=== PATIENT | male | born 1940 | race Caucasian/White ===

== ENCOUNTER 2017-09-10 05:42 | Outpatient (CLI) | payer MEDICARE ==
[~2017-09-10] VITALS: Ht 177.8 cm; Wt 71.7 kg
[2017-09-10] MEDS ORDERED: NAPR500T8 PO (12:43)
[2017-09-10] MEDS ORDERED: CETI10TA17 PO (12:43)
== END 2017-09-10 13:30 ==
LOC: PREOP 05:42
PROVIDERS: ATTEND Surgery
DX: Z01.818 Encounter for other preprocedural examination (principal); Z12.11 Encounter for screening for malignant neoplasm of colon; R63.4 Abnormal weight loss

== ENCOUNTER 2017-09-12 09:23 | Day surgery (SDC) | payer MEDICARE, OTHER ==
[~2017-09-12] VITALS: Ht 177.8 cm; Wt 71.7 kg
[~2017-09-12 09:23] MED LIST: CETI10TA17 PO; NAPR500T8 PO
[2017-09-12] MEDS ORDERED: NS IV 500 ML 500 ML ONE (10:12)
[2017-09-12 10:13] VITALS: BP 124/67
[2017-09-12] MEDS ORDERED: NS IV 500 ML 500 ML IV SCH (10:15)
[2017-09-12] MEDS ORDERED: LIDOCAINE JELLY 2% (XYLOCAINE) 5 ML TUBE MM PRN (10:15)
[2017-09-12] MEDS ORDERED: MIDAZOLAM 2 MG/2 ML (VERSED) VIAL ONE ×2 (10:17)
[2017-09-12] MEDS ORDERED: fentaNYL INJECTION 100 MCG/2 ML AMP ONE ×2 (10:17→11:27)
[2017-09-12] MEDS ORDERED: LIDOCAINE JELLY 2% (XYLOCAINE) 5 ML TUBE ONE (10:18)
--- NOTE | 2017-09-12 10:20 | Conscious Sedation/ASA ---
Conscious Sedation Pre-Proced Time Reviewed: 09:30 ASA Class: 2 Airway Mallampati Classification: (elim ira appropriate class) I. II. III, IV Lungs Heart ASA score ASA 1: a normal healthy patient ASA 2: a patient with a mild systemic disease (mid diabetes, controlled hypertension, obesity ASA 3: a patient with a severe systemic disease that limits activity (angina , COPD, prior Myocardial infarction) ASA 4: a patient with an incapacitating disease that is a constant threat to life (CHF, renal failure) ASA 5: a moribund patient not expected to survive 24 hrs. (ruptured aneurysm) ASA 6: a declared brain patient whose organs are being harvested. For emergent operations, add the letter E after the classification Grade 3 Sedation Plan: Analgesia, Amnesia, Plan communicated to team members, Discussed options with patient/fam, Discussed risks with patient/fam Note The patient is an appropriate candidate to undergo the planned procedure, sedation, and anesthesia. The patient immediately re-assessed prior to indication. AGGIE MI MD Sep 12, 2017 10:20 am
--- NOTE | 2017-09-12 10:20 | Progress Note-Pre Operative ---
Pre-Operative Progress Note H&P Reviewed The H&P was reviewed, patient examined and no changes noted. Date Seen by Provider: Sep 12, 2017 Time Seen by Provider: : Date H&P Reviewed: Sep 12, 2017 Time H&P Reviewed: :30 Pre-Operative Diagnosis: screening colonoscopy AGGIE MI MD Sep 12, 2017 10:20 am
[2017-09-12] MEDS ORDERED: ONDANSETRON 4 MG/2 ML (SDV) Z0FRAN IV PRN (10:30)
[2017-09-12] MEDS ORDERED: HYDROcodone/APAP 5 MG/325 MG (LORTAB) TAB PO PRN (10:30)
[2017-09-12] MEDS ORDERED: ACETAMINOPHEN 325 MG TABLET/CAPLET (TYLENOL) PO PRN (10:30)
[2017-09-12] MEDS ORDERED: morphine INJ 10 MG/ML 1ML (SYR OR VIAL) IV PRN (10:30)
[2017-09-12] MEDS: fentaNYL INJECTION 100 MCG/2 ML AMP IVP PRN ×3 (11:05→11:35)
[2017-09-12] MEDS: MIDAZOLAM 2 MG/2 ML (VERSED) VIAL IVP PRN ×2 (11:10→11:32)
[2017-09-12 11:50] VITALS: BP 144/49
--- NOTE | 2017-09-12 12:05 | Progress Note-Post Operative ---
Post-Operative Progess Note Surgeon (s)/Multimedia Services Coordinator (s) Surgeon AGGIE MI MD Multimedia Services Coordinator: none Pre-Operative Diagnosis screening colonoscopy Post-Operative Diagnosis normal colon and rectum Procedure & Operative Findings Date of Procedure 09/12/17 Procedure Performed/Findings Colonoscopy. Anesthesia Type CS Estimated Blood Loss Estimated blood loss (mL): minimal Specimens/Packing Specimens Removed none AGGIE MI MD Sep 12, 2017 12:05 pm
--- NOTE | 2017-09-12 12:06 | Discharge Inst-Surgical ---
D/C Lap Instructions-HIWOT Follow Up 10 years Activity as tolerated High Fiber Diet 25g or more per day Avoid Alcohol, Caffeine, Spicy [place] and Acid foods. Drink 64 fluid oz or more of fluids per day. Symptoms to Report: Fever over 101 degree F, Nausea/Vomiting If any problems/questions: Contact your physician or go to Emergency Room AGGIE MI MD Sep 12, 2017 12:06 pm
[2017-09-12 12:25] VITALS: BP 118/70
[2017-09-12 12:29] VITALS: BP 118/70
--- NOTE | 2017-09-12 22:57 | OPERATIVE REPORT ---
DATE OF SERVICE: 09/12/2017 ATTENDING, PRIMARY CARE PHYSICIAN: Dr. Holm. PREOPERATIVE DIAGNOSIS: Screening colonoscopy. POSTOPERATIVE DIAGNOSIS: Normal colon and rectum. PROCEDURE: Colonoscopy. SURGEON: Dr. Machado. ANESTHESIA: Conscious sedation. ESTIMATED BLOOD LOSS: Minimal. FINDINGS: No significant hemorrhoids identified. Prostate gland was palpable and appeared normal. The remainder of the rectum and colon were normal. DISPOSITION: The patient tolerated the procedure well. INDICATIONS: The patient is a 77-year-old male in need of a screening colonoscopy. His last colonoscopy was approximately 10 years ago. He remembers that to be normal. He states that he is doing well and for the most part is having normal bowel movements with no major episodes of diarrhea nor constipation as well as no red blood per rectum nor any dark tarry stools. He also does not have a family history of colon cancer. DESCRIPTION OF PROCEDURE: The patient was brought to the endoscopy suite, laid in the left lateral decubitus position. After adequate IV pain and sedating medications and conscious sedation anesthesia, a digital rectal examination was performed. No significant hemorrhoids that were identified. Prostate gland was palpable and appeared normal. The endoscope was then intubated to the anus and rectum gently insufflated. The endoscope was then advanced to the valves of [place] of the rectum with no polyps or any neoplasms identified. We then proceeded through the sigmoid colon where no diverticulosis identified. We then proceeded to the remainder of the descending, transverse, ascending colon and the cecum. These segments were normal. There were no polyps or any neoplasms identified throughout the colon or rectum. The endoscope was then slowly withdrawn while taking a second look and suctioning of residual air with no additional findings. The patient tolerated the procedure well. We will recommend continued medical management with a high fiber diet with at least 30 grams of fiber per day as well as at least 64 fluid ounces of water daily to promote soft stools on a daily basis. He does not need another colonoscopy for another 10 years. Job ID: [id number] DocumentID: [id number] Dictated Date: 09/12/2017 12:03:47 Operations Controller Date: 09/12/2017 22:56:50 Dictated By: AGGIE MACHADO MD
== END 2017-09-12 12:45 | disposition home or self-care (01) ==
LOC: ENDO 09:23
PROVIDERS: ATTEND Surgery
DX: Z12.11 Encounter for screening for malignant neoplasm of colon (principal); Z87.891 Personal history of nicotine dependence

== ENCOUNTER → 2018-10-11 | Outpatient (CLI) | payer MEDICARE, OTHER | LOC: CARD 07:57 | PROVIDERS: ATTEND Internal Medicine Interventional Cardiology | DX: I10 Essential (primary) hypertension (principal); R55 Syncope and collapse; R00.2 Palpitations; I49.5 Sick sinus syndrome | CPT/HCPCS: 93225; 93226 ==

== ENCOUNTER 2018-11-20 13:11 | Outpatient (RCR) | payer MEDICARE, OTHER ==
[2019-01-17] MEDS ORDERED: CEPH-507 PO (09:31)
== END 2019-01-19 | disposition home or self-care (01) ==
LOC: CARD 13:11
PROVIDERS: ATTEND Internal Medicine Interventional Cardiology
DX: I10 Essential (primary) hypertension (principal); R55 Syncope and collapse; R00.2 Palpitations; I49.5 Sick sinus syndrome
CPT/HCPCS: 93270

== ENCOUNTER → 2018-12-11 | Outpatient (CLI) | payer MEDICARE, OTHER | LOC: CARD 10:38 | PROVIDERS: ATTEND Internal Medicine Interventional Cardiology | DX: I10 Essential (primary) hypertension (principal); R55 Syncope and collapse; R00.2 Palpitations; I49.5 Sick sinus syndrome; I08.1 Rheumatic disorders of both mitral and tricuspid valves | CPT/HCPCS: 93306 ==

== ENCOUNTER 2019-01-16 08:01 | Day surgery (SDC) | payer MEDICARE, OTHER ==
[2019-01-16] VITALS (10 sets, daily range): BP systolic 132–175; BP diastolic 39–90
[~2019-01-16] VITALS: Ht 180.3 cm; Wt 70.3 kg
[2019-01-16] MEDS ORDERED: NS IV 1000 ML 1,000 ML IV SCH ×2 (08:04→11:55)
[2019-01-16] MEDS ORDERED: NS IV 1000 ML 1,000 ML IV ONE (08:04)
[2019-01-16] MEDS ORDERED: HEParin 1000 UNIT/ML (10ML VIAL) FOR BOLUS ONE (08:09)
[2019-01-16] MEDS ORDERED: LIDOCAINE 1% INJ 20 ML 20 ML VIAL ONE (08:09)
[2019-01-16] MEDS ORDERED: NS IV 1000 ML 2,000 ML ONE (08:09)
[2019-01-16] MEDS ORDERED: VANCOMYCIN 1000 MG/VIAL ONE (08:14)
[2019-01-16] MEDS ORDERED: NS (IVPB) 250 ML ONE (08:14)
[2019-01-16] MEDS ORDERED: VANCOMYCIN INJECTION 1,000 MG in NS (IVPB) 250 ML IV ONE (08:15)
[2019-01-16] MEDS ORDERED: BACITRACIN INJECTION 50,000 UNIT, SODIUM CHLORIDE 0.9% IRRIGATIO 500 ML IR ONE ×2 (08:15)
[2019-01-16 08:41] LABS: RED CELL DISTRIBUTION WIDTH 12.4 % (10.0-14.5); WHITE BLOOD COUNT 6.2 10^3/uL (4.3-11.0)
[2019-01-16] MEDS ORDERED: MIDAZOLAM 5 MG/5 ML (VERSED) VIAL ONE (08:51)
[2019-01-16] MEDS ORDERED: fentaNYL INJECTION 100 MCG/2 ML AMP ONE (08:51)
[2019-01-16] MEDS ORDERED: FLU QUADRIvalent (5+ YOA) 2018-2019 (AFLURIA) 0.5 ML IM ONE (09:00)
[2019-01-16 09:01] LABS: ALANINE AMINOTRANSFERASE 14 U/L (0-55); ALBUMIN 4.2 GM/DL (3.2-4.5); ALKALINE PHOSPHATASE 64 U/L (40-136); BUN/CREATININE RATIO 14; CALCIUM 9.8 MG/DL (8.5-10.1); CARBON DIOXIDE 26 MMOL/L (21-32); CHLORIDE 108 MMOL/L (98-107); CHOLESTEROL 205 MG/DL (< 200); CREATININE SERUM 0.87 MG/DL (0.60-1.30); GFR ESTIMATED > 60; GLUCOSE 94 MG/DL (70-105); HDL CHOLESTEROL 62 MG/DL (40-60); POTASSIUM 3.6 MMOL/L (3.6-5.0); SODIUM 144 MMOL/L (135-145); TOTAL PROTEIN 6.6 GM/DL (6.4-8.2); TRIGLYCERIDES 99 MG/DL (<150); VLDL CHOLESTEROL 20 MG/DL (5-40)
[2019-01-16 09:07] LABS: PROTHROMBIN TIME PATIENT 13.4 SEC (12.2-14.7)
[2019-01-16] MEDS ORDERED: NEO/POLY/BAC (NEOSPORIN) OINT 15 GM TUBE ONE (11:34)
--- NOTE | 2019-01-16 11:50 | Cardiac Procedure Note-CS/ASA ---
Pre-Procedure Note Pre-Op Procedure Note H&P Reviewed The H&P was reviewed, patient examined and no changes noted. Date H&P Reviewed: Jan 16, 2019 Time H&P Reviewed: 09:30 Conscious Sedation Pre-Proced Time 09:30 ASA Score 3 For ASA 3 and 4: Consider anesthesia and medical clearance. Also, for patients with a history of failed moderate sedation consider anesthesia. Airway Lungs Heart ASA score ASA 1: a normal healthy patient ASA 2: a patient with a mild systemic disease (mid diabetes, controlled hypertension, obesity ASA 3: a patient with a severe systemic disease that limits activity (angina , COPD, prior Myocardial infarction) ASA 4: a patient with an incapacitating disease that is a constant threat to life (CHF, renal failure) ASA 5: a moribund patient not expected to survive 24 hrs. (ruptured aneurysm) ASA 6: a declared brain- patient whose organs are being harvested. For emergent operations, add the letter E after the classification Mallampati Classification Grade 1 Sedation Plan Analgesia, Amnesia, Plan communicated to team members, Discussed options with patient/fam, Discussed risks with patient/fam The patient is an appropriate candidate to undergo the planned procedure, sedation, and anesthesia. The patient immediately re-assessed prior to indication. Jemma ALVA MD Jan 16, 2019 11:49
--- NOTE | 2019-01-16 11:55 | Permanent Pacemaker Implant ---
Dual Chamber Pacemaker Implant PROCEDURE PHYSICIAN: Gilbert Xiao MD DUAL CHAMBER PACEMAKER IMPLANTATION: DATE OF PROCEDURE: 01/16/19 INDICATION: Symptomatic sinus node dysfunction. PREOPERATIVE DIAGNOSIS: Symptomatic sinus node dysfunction. POSTOPERATIVE DIAGNOSIS: Successful dual-chamber Permanent pacemaker. HISTORY: This is a 78-year-old gentleman with symptomatic sinus node dysfunction. Dual- chamber permanent pacemaker was recommended. PROCEDURE PERFORMED: 1. Dual-chamber permanent pacemaker implantation. 2. Fluoroscopy. 3. Central venous access. ANESTHESIA: Local anesthesia, conscious sedation. COMPLICATIONS: None. ESTIMATED BLOOD LOSS:20 mL. SPECIMENS: None. ORAL ANTICOAGULATION: None. FLUOROSCOPY TIME: 6.8 minutes. FLUOROSCOPY DOSE: 21 mgy. CONTRAST DOSE: None. PROCEDURE DETAILS: The patient is a 78 male and after all of the patients questions were answered, the patient was brought to the EP Lab. The patient's left chest was prepped and draped in sterile fashion. A 2 inch horizontal incision was made 1 cm below the clavicle and dissection carried down to the pectoralis fascia. Using the modified Seldinger technique and under fluoroscopy guidance, the anterior aspect of the left axillary vein was accessed 2 times. The J wires were secured to the drapes with a mosquito clamp. A 6-Azerbaijani sheath was introduced over one of the J-wires. The RV lead was then inserted. The RV lead was directed across the tricuspid valve to the apical septal portion of the right ventricle. The position was checked in NARGIS and TRAN views. The screw was deployed and the lead connected to the senior programmer. Close sensing and pacing thresholds were obtained. Diaphragmatic pacing was ruled out. The lead was secured with 2-0 silk ties to the underlying muscle and fascia. Next, a 7-[place]zerbaijani sheath was introduced through the remaining J-wire. An atrial lead was then introduced and guided to the level of the right appendage. The screw was deployed and the lead was connected to the interrogator. Good sensing and pacing thresholds were obtained. Diaphragmatic pacing was ruled out. The leads were secured with 2-0 silk ties to the underlying muscle and fascia. The leads were connected to the device in a hermetic fashion. The device and leads were placed in the pocket. Aggressive irrigation with saline solution was done. The device was secured to the underlying muscle and fascia with a 2-0 silk tie. interrogation of the device revealed good integrity of all the leads and good connections. The wound was then closed using 2 layers. The first layer was interrupted 2-0 absorbable Vicryl suture. The last layer was a single subcuticular layer with 4-0 Vicryl suture. Half inch Steri-Strips and a small dressing were then applied to the wound. The patient tolerated the procedure well and was returned to the recovery room in stable condition with stable vital signs. DEVICE INFORMATION: Biotronik Eluna 8 DR-T. Ref [id number], serial number [id number] , PID 43. RA LEAD: Solia S 53 Biotronik, reference number 042338, serial number [id number]. RV LEAD: Solia S 60 Biotronik, reference number 666966, serial number [id number]. PER-OPERATIVE DEVICE INTERROGATION: RA sensing 3.6 mV. Impedance 540 ohms. Threshold 1.1 V at 0.5 ms. RV sensing 11.6 mV, impedance 605 ohms, threshold 0.5 V at 0.5 ms. IMMEDIATE POSTOPERATIVE DEVICE INTERROGATION: RA sensing 4.1 mV, impedance 468 ohms, threshold 0.8 V at 0.4 ms. RV sensing 9.1 mV, impedance 526 ohms, threshold 0.6 V at 0.4 ms. Device [place] DDDR 53589. PAV 350 ms + 110 ms. YUKI 350 ms + 110 ms. PLAN: The patient transferred to the ICU. We will continue with two more doses of IV antibiotics. We will check a chest x-ray and interrogate the device in the morning. The patient will continue on oral antibiotics for 5 days. iGlbert Xiao MD, RS, CCDS Cardiac Electrophysiology Jemma XIAO MD Jan 16, 2019 11:55
[2019-01-16] MEDS ORDERED: PATIENT MAY USE OWN MEDS, ALL PO SCH (12:00)
--- NOTE | 2019-01-16 13:11 | Diagnostic Imaging Report ---
EXAMINATION: AP chest at 12:03 p.m. INDICATION: Pacemaker insertion. FINDINGS: There are no prior studies available for comparison. The heart size is at the upper limits of normal. There is a dual-lead left-sided pacemaker in place. The leads seem to be in good position and there is no sign of pneumothorax on the left. The lungs are generally clear. There is no evidence for failure, pneumonia, or pleural effusion. The mediastinum is not widened. The osseous structures are intact. There is deformity of the distal left clavicle due to prior trauma, however. There is also an orthopedic plate and screw fixation device overlying the cervicothoracic junction. IMPRESSION: 1. There has been insertion of a left-sided pacemaker without apparent complication. 2. There is borderline cardiomegaly, but there is no evidence for an acute cardiopulmonary abnormality. Dictated by: Dictated on workstation # [id number]
[2019-01-16] MEDS ORDERED: ACETAMINOPHEN 325 MG TABLET PO PRN (20:00)
[2019-01-16] MEDS ORDERED: ACETAMINOPHEN 325 MG TABLET ONE (20:35)
[2019-01-16] MEDS: VANCOMYCIN INJECTION 1,000 MG in NS (IVPB) 250 ML IV SCH (20:48)
[2019-01-17] VITALS: BP 127/65
[2019-01-17 03:44] LABS: HEMOGLOBIN 13.4 G/DL (13.3-17.7); MEAN PLATELET VOLUME 10.9 FL (7.4-10.4); RED CELL DISTRIBUTION WIDTH 12.2 % (10.0-14.5); WHITE BLOOD COUNT 7.6 10^3/uL (4.3-11.0)
[2019-01-17 04:00] VITALS: BP 145/77
[2019-01-17 04:09] LABS: ALANINE AMINOTRANSFERASE 13 U/L (0-55); ALBUMIN 3.7 GM/DL (3.2-4.5); ALKALINE PHOSPHATASE 55 U/L (40-136); BILIRUBIN,TOTAL 1.2 MG/DL (0.1-1.0); BUN/CREATININE RATIO 21; CARBON DIOXIDE 26 MMOL/L (21-32); CHLORIDE 109 MMOL/L (98-107); CREATININE SERUM 0.87 MG/DL (0.60-1.30); GFR ESTIMATED > 60; GLUCOSE 89 MG/DL (70-105); POTASSIUM 3.8 MMOL/L (3.6-5.0); SODIUM 143 MMOL/L (135-145); TOTAL PROTEIN 5.7 GM/DL (6.4-8.2)
[2019-01-17 08:00] VITALS: BP 140/70
[2019-01-17] MEDS: VANCOMYCIN INJECTION 1,000 MG in NS (IVPB) 250 ML IV SCH (09:07)
[2019-01-17] MEDS ORDERED: CEPH-507 PO (09:31)
[2019-01-17 10:11] VITALS: BP 147/70
--- NOTE | 2019-01-17 10:42 | Cardiology Discharge Summary ---
Diagnosis/Chief Complaint Date of Admission 01/16/2019 Date of Discharge 01/17/2019 Admission Diagnosis Symptomatic sinus node dysfunction Final/Discharge Diagnosis Dual-chamber permanent pacemaker implantation Chief Complaint/HPI Chief Complaint/HPI This is a 78-year-old gentleman with symptomatic sinus node dysfunction. Dual- chamber permanent pacemaker is recommended. Discharge Summary Procedures Dual-chamber permanent pacemaker performed successfully. Biotronik. Discharge Physical Examination Normal left chest wound with no hematoma or any other abnormality. Normal cardiovascular examination. Hospital Course Was the Problem List Reviewed?: Yes Unremarkable. Pending Labs Laboratory Tests 01/17/19 02:50: White Blood Count 7.6, Red Blood Count 4.13, Hemoglobin 13.4, Hematocrit 40, Mean Corpuscular Volume 97, Mean Corpuscular Hemoglobin 32, Mean Corpuscular Hemoglobin Concent 34, Red Cell Distribution Width 12.2, Platelet Count 149, Mean Platelet Volume 10.9, Sodium Level 143, Potassium Level 3.8, Chloride Level 109, Carbon Dioxide Level 26, Anion Gap 8, Blood Urea Nitrogen 18, Creatinine 0.87, Estimat Glomerular Filtration Rate > 60, BUN/Creatinine Ratio 21, Glucose Level 89, Calcium Level 9.0, Corrected Calcium 9.2, Total Bilirubin 1.2, Aspartate Amino Transf (AST/SGOT) 19, Alanine Aminotransferase (ALT/SGPT) 13, Alkaline Phosphatase 55, Total Protein 5.7, Albumin 3.7 Discussion & Recommendations Discussion Discharge instructions were discussed at length with the patient. Antibiotics for 5 days. Wound check in one week. Follow up appt.: Wound check in one week. Dicharge Diet: Regular Diet Activity as Tolerated: Yes Home Medications Reviewed patient Home Medication Reconciliation performed by pharmacy medication reconciliations foundry technician and/or nursing. Patients Allergies have been reviewed. Discharge Home Medications: Reviewed and agree with Discharge Medication list on patient's Discharge Instruction sheet Condition at discharge Stable. Instructions to patient/family Discussed at length with the patient. Jemma ALVA MD Jan 17, 2019 10:42
== END 2019-01-17 09:56 | disposition home or self-care (01) ==
LOC: CATH 08:01 → ICU 12:16 → CATH 01-17 09:56
PROVIDERS: ATTEND Internal Medicine Interventional Cardiology
DX: I49.5 Sick sinus syndrome (principal); I10 Essential (primary) hypertension; Z82.49 Family history of ischemic heart disease and other diseases of the circulatory system; Z79.899 Other long term (current) drug therapy
CPT/HCPCS: 33208; 36415; 71045; 80053; 80061; 85027; 85610; 85730; 87081; 93005

== ENCOUNTER 2019-07-23 05:37 | Outpatient (CLI) | payer MEDICARE, OTHER ==
[~2019-07-23] VITALS: Ht 177.8 cm; Wt 71.2 kg
[~2019-07-23 05:37] MED LIST changes: +CEPH-507 PO
== END 2019-07-23 11:59 ==
LOC: PREOP 05:37
PROVIDERS: ATTEND Surgery
DX: Z01.818 Encounter for other preprocedural examination (principal); K21.9 Gastro-esophageal reflux disease without esophagitis; R63.4 Abnormal weight loss

== ENCOUNTER 2019-07-30 11:17 | Day surgery (SDC) | payer MEDICARE, OTHER ==
[2019-07-30] VITALS (16 sets, daily range): BP systolic 123–206; BP diastolic 59–109
[~2019-07-30] VITALS: Ht 177.8 cm; Wt 71.2 kg
[2019-07-30] MEDS ORDERED: NS IV 500 ML 500 ML ONE (11:22)
[2019-07-30] MEDS ORDERED: NS IV 500 ML 500 ML IV PRN (11:25)
[2019-07-30] MEDS ORDERED: LIDOCAINE JELLY 2% 6 ML SYRINGE MM PRN (11:30)
[2019-07-30] MEDS ORDERED: fentaNYL INJECTION 100 MCG/2 ML AMP IVP ONE (11:30)
[2019-07-30] MEDS ORDERED: MIDAZOLAM 2 MG/2 ML (VERSED) VIAL IVP ONE (11:30)
--- NOTE | 2019-07-30 11:46 | Conscious Sedation/ASA ---
Conscious Sedation Pre-Proced Time 11:45 ASA Score 2 For ASA 3 and 4: Consider anesthesia and medical clearance. Also, for patients with a history of failed moderate sedation consider anesthesia. Airway Lungs Heart ASA score ASA 1: a normal healthy patient ASA 2: a patient with a mild systemic disease (mid diabetes, controlled hypertension, obesity ASA 3: a patient with a severe systemic disease that limits activity (angina, COPD, prior Myocardial infarction) ASA 4: a patient with an incapacitating disease that is a constant threat to life (CHF, renal failure) ASA 5: a moribund patient not expected to survive 24 hrs. (ruptured aneurysm) ASA 6: a declared brain- patient whose organs are being harvested. For emergent operations, add the letter E after the classification Mallampati Classification Grade 2 Sedation Plan Analgesia, Amnesia, Plan communicated to team members, Discussed options with patient/fam, Discussed risks with patient/fam The patient is an appropriate candidate to undergo the planned procedure, sedation, and anesthesia. The patient immediately re-assessed prior to indication. AGGIE MI MD Jul 30, 2019 11:46
--- NOTE | 2019-07-30 11:47 | Progress Note-Pre Operative ---
Pre-Operative Progress Note H&P Reviewed The H&P was reviewed, patient examined and no changes noted. Date Seen by Provider: Jul 30, 2019 Time Seen by Provider: 11:45 Date H&P Reviewed: Jul 30, 2019 Time H&P Reviewed: 11:45 Pre-Operative Diagnosis: GERD, abd pain, wt loss AGGIE MI MD Jul 30, 2019 11:47
--- NOTE | 2019-07-30 11:49 | Discharge Inst-Surgical ---
D/C Lap Instructions-HIWOT Follow Up Activity as tolerated High Fiber Diet 25g or more per day Avoid Alcohol, Caffeine, Spicy [place] and Acid foods. Drink 64 fluid oz or more of fluids per day. Symptoms to Report: Fever over 101 degree F, Nausea/Vomiting If any problems/questions: Contact your physician or go to Emergency Room AGGIE MI MD Jul 30, 2019 11:48
[2019-07-30] MEDS ORDERED: HURRICAINE EXT TUBE (BENZOCAINE) XX ONE (12:00)
[2019-07-30] MEDS ORDERED: LIDOCAINE JELLY 2% 6 ML SYRINGE ONE (13:12)
[2019-07-30] MEDS ORDERED: MIDAZOLAM 2 MG/2 ML (VERSED) VIAL ONE ×5 (13:12→13:51)
[2019-07-30] MEDS ORDERED: fentaNYL INJECTION 100 MCG/2 ML AMP ONE (13:13)
[2019-07-30] MEDS ORDERED: HURRICAINE EXT TUBE (BENZOCAINE) ONE (13:13)
--- NOTE | 2019-07-30 14:15 | Progress Note-Post Operative ---
Post-Operative Progess Note Surgeon (s)/Shell Machine Operator (s) Surgeon AGGIE MI MD Shell Machine Operator: none Pre-Operative Diagnosis GERD, abd pain, wt loss Post-Operative Diagnosis reflux esophagitis(stage 2), small HH(1cm), mild-mod gastritis. mild chronic stage 1 ext and int hemorrhoids. Procedure & Operative Findings Date of Procedure 07/30/19 Procedure Performed/Findings EGD with bx. Colonoscopy. Anesthesia Type cs Estimated Blood Loss Estimated blood loss (mL): minimal Specimens/Packing Specimens Removed ge jxn, antrum AGGIE MI MD Jul 30, 2019 14:15
--- NOTE | 2019-07-30 22:43 | OPERATIVE REPORT ---
DATE OF SERVICE: 07/30/2019 ATTENDING PRIMARY CARE PHYSICIAN: Dr. Holm. PREOPERATIVE DIAGNOSES: Gastroesophageal reflux disease, crampy abdominal pain, 10-pound weight loss. POSTOPERATIVE DIAGNOSES: Reflux esophagitis stage II, small hiatal hernia 1 cm in size, moderate severity gastritis, mild chronic stage I external and internal hemorrhoids. The rectum and colon were normal. PROCEDURE: EGD with biopsy, colonoscopy. SURGEON: Aggie Machado MD. ANESTHESIA: Conscious sedation. ESTIMATED BLOOD LOSS: Minimal. FINDINGS: Reflux esophagitis stage II, small hiatal hernia 1 cm in size, moderate severity gastritis, mild chronic stage I external and internal hemorrhoids. The rectum and colon were normal. DISPOSITION: The patient tolerated the procedure well. INDICATIONS: The patient is a 78-year-old male referred over to us for several different issues. He does report that he did have some type of gastrointestinal illness several weeks ago and did have some nausea; however, no vomiting. He states that during this timeframe, he also developed epigastric burning sensation consistent with gastroesophageal reflux disease. He also had reported some dizziness, fatigue as well as crampy abdominal pain. He had also reported pain in both right and left lateral portions of the abdomen. He also reports that during this timeframe, he lost approximately 10 pounds. He does not report any red blood per rectum nor any dark tarry stools. DESCRIPTION OF PROCEDURE: The patient was brought to the endoscopy suite, laid in the left lateral decubitus position. After adequate IV pain and sedating medications and conscious sedation anesthesia, the mouthpiece was applied. The endoscope was placed in the mouth, visualizing the pharynx and hypopharyngeal region. Vocal cords, epiglottis and vallecula identified and appeared to be normal. The endoscope was then gently intubated into the esophageal opening. Esophagus was insufflated. The endoscope was then advanced to the first, second and third portion of the esophagus at the level of the GE junction, a reflux esophagitis stage II identified. There were no ulcers or strictures identified in this region. A biopsy was taken with forceps with visualization of good hemostasis. The endoscope was then advanced into the stomach and endoscope retroflexed, visualizing a small hiatal hernia approximately 1 cm in size. There was a mild to moderate severity gastritis. No formal ulcerations, polyps, nor any neoplasms. A biopsy was taken of the antrum to rule out H. pylori with visualization of good hemostasis. The endoscope was then advanced to the pylorus and the first and second portion of the duodenum, which appeared normal. No distal obstructions. The endoscope was then slowly withdrawn while taking a second look and suctioning of residual air with no additional findings. Under the same anesthesia, we then proceeded with colonoscopy portion of procedure. A digital rectal examination was performed, which revealed mild chronic stage I external and internal hemorrhoids, not actively edematous nor inflamed and no bleeding. Normal sphincter tone was felt and there were no palpable masses. Prostate gland was palpable and appeared normal. The endoscope was then intubated into the anus and rectum gently insufflated. The endoscope was then advanced to the valves of [place] of the rectum with no polyps or any neoplasms identified. The endoscope was then advanced to the remainder of the descending, transverse and ascending colon through the sigmoid colon where no diverticulosis identified. The endoscope was then advanced to the remainder of the descending, transverse and ascending colon to the cecum. These segments were normal. There were no polyps or any neoplasms identified as well as no mucosal inflammatory changes. The endoscope was then slowly withdrawn while taking a second look and suctioning of residual air with no additional findings. The patient tolerated the procedure well. We will recommend a high fiber diet with 30 grams or more fiber daily to promote soft stools on a daily basis as well as significant amounts of water. He does not need another colonoscopy for another 10 years. Job ID: [id number] DocumentID: [id number] Dictated Date: 07/30/2019 14:10:53 Building Mechanic Date: 07/30/2019 22:42:42 Dictated By: AGGIE MACHADO MD
== END 2019-07-30 15:20 | disposition home or self-care (01) ==
LOC: ENDO 11:17
PROVIDERS: ATTEND Surgery
DX: K21.0 Gastro-esophageal reflux disease with esophagitis (principal); K29.70 Gastritis, unspecified, without bleeding; K44.9 Diaphragmatic hernia without obstruction or gangrene; K64.0 First degree hemorrhoids; K64.8 Other hemorrhoids; Z95.0 Presence of cardiac pacemaker; Z98.1 Arthrodesis status; Z88.0 Allergy status to penicillin; Z91.030 Bee allergy status; Z79.899 Other long term (current) drug therapy; Z91.09 Other allergy status, other than to drugs and biological substances; Z87.891 Personal history of nicotine dependence; Z82.49 Family history of ischemic heart disease and other diseases of the circulatory system; Z80.49 Family history of malignant neoplasm of other genital organs
CPT/HCPCS: 88305